=== PATIENT | female | born 2000 ===

== ENCOUNTER 2024-01-27 08:16 | Emergency (ER) | payer MEDICAID, SELFPAY ==
--- NOTE | ~2024-01-27 | CT_ITS ---
EXAMINATION: CT HIP WITH CONTRAST, RIGHT CLINICAL INFORMATION: Chronic open wound with drainage. COMPARISON: Radiographs of the hip from 01/27/2024 TECHNIQUE: CT imaging of the right hip region is performed with intravenous administration of 85 mL Omnipaque 350. This CT examination was performed using dose optimization techniques as appropriate, variously including the following: *Automated exposure control *Adjustment of mA and/or kV according to patient size (this includes techniques or standardized protocols for targeted exams where dose is matched to indication/reason for exam; i.e. 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 There is an old ossific fragment at the posteromedial aspect of the acetabulum. No acute fracture. A curvilinear focus of heterotopic ossification projects posterosuperior to the greater trochanter. Also, there are foci of heterotopic ossification and enthesophyte formation at the distal iliopsoas without iliopsoas bursitis. A small amount of gas and fluid are seen within a wound posteroinferior to the right hip. There is contrast enhancement along the periphery of the wound which tracks anteriorly and superiorly toward the region of the greater trochanter. This tract does not appear to penetrate through the hip joint capsule or into the femoral cortex. The bone marrow of the proximal femur has normal attenuation. There is no CT imaging evidence of osteomyelitis. There appears to be a trace amount of fluid within the right femoroacetabular joint and likely chronic capsular/synovial thickening of the deformed joint. There is no intra-articular gas. Fluid and fecal material present within the sigmoid colon and rectum. The rectum is distended up to 7.5 cm maximum transverse diameter. Constipation is suspected. There is no evidence of rectal or sigmoid mass. Urinary bladder is well distended and has normal wall thickness. No bladder stones or diverticula. No evidence of hydroureteronephrosis. No uterine or adnexal mass. No pelvic free fluid. No pathologic sized iliac or inguinal lymph nodes. Dextrocurvature of partially visualized lumbar spine. Streak artifact is produced by a pump in subcutaneous tissues of the lower right abdominal wall and an intact catheter extends toward the back and enters the posterior spinal canal at L3-L4 level. CT/CT hip RT w IV con IMPRESSION: * There is contrast enhancement along around a wound located posterior to the right hip. This wound tracks anteriorly and superiorly toward the region of the greater trochanter of the femur but there is no visible trochanteric bursitis or osteomyelitis. * Severe dysplastic deformity of the right hip with probable chronic small joint effusion and chronic capsular/synovial thickening at the deformed hip. * The sigmoid colon and rectum are distended with fluid and fecal material with rectum measuring up to 7.5 cm transverse dimension, which is suspicious for constipation. * Urinary bladder appears to be distended to near maximum capacity. Given the degree of bladder distention, query if there is a history of bladder dysfunction/neurogenic bladder.
--- NOTE | ~2024-01-27 | XR_ITS ---
EXAMINATION: XR HIP, RIGHT CLINICAL INFORMATION: Open wound at right hip COMPARISON: None available. TECHNIQUE: Two views of the right hip. FINDINGS: Bones are diffusely osteopenic. Severely deformed, dysplastic hips with presence of shallow acetabula and likely chronic superolateral dislocation of each femur. There is a mild amount of heterotopic ossification adjacent to the lesser trochanter of the right femur. There are no comparison imaging examinations of the right hip. However, there is no convincing acute erosive change. No aggressive periostitis. There appears to be a small focus of soft tissue gas projecting lateral to the intertrochanteric region on the AP view, but this is not seen on the frog-leg lateral view. The evaluation of the right pelvis and hip is partially limited on the AP view due to presence of an intrathecal pump with attached catheter in place. 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 * There appears to be a small focus of soft tissue gas in the right hip region. However, there is no convincing evidence of either septic arthritis or osteomyelitis. If clinically warranted, CT imaging of the pelvis/hips may be performed to further evaluate the bones and soft tissues.
--- NOTE | 2024-01-27 08:21 | ED.WOUNDLAC ---
HPI - Wound/Laceration General Chief Complaint: Wound/Laceration Stated Complaint: RIGHT HIP WOUND PER EMS Source: family, old records reviewed and analyst food and beverage Mode of arrival: EMS Limitations: other (family has to provide hx patient is nonverbal) History of Present Illness HPI narrative: 23 yo female with PMH of cerebral palsy s/p trach and vent with feeding tube who is nonverbal presents with c/o 6+ months of R hip wound that has been managed by [facility] but no surgeon or wound care center since she stayed at a respite facility s/p trach procedure. The family care for her and rotate her a lot they were able to heal ulcers on both lateral malleoli. She has never had wounds at home. She has not had fevers. They use pressure dressings and pack the wound daily. There are no signs of infection but RN today told family to get her checked out to make sure nothing else was going on. Onset (ago): month(s) (6+) Extremity Location: right: hip Place: other Patient tetanus UTD: Yes Context: other (after being at respite facility) Associated symptoms: none Treatments prior to arrival: bandage Related Data Previous Rx's Medication Instructions Recorded cephalexin 250 mg/5 mL oral 500 mg (10 mL) PO TID 7 days #210 01/27/24 suspension mL foam bandage 4 X 4 (Mepilex) #5 ea 01/27/24 Allergies Allergy/AdvReac Type Severity Reaction Status Date / Time sulfamethoxazole Allergy Unknown Unknown Verified 01/27/24 08:30 [From Bactrim] trimethoprim [From Bactrim] Allergy Unknown Unknown Verified 01/27/24 08:30 Review of Systems Review of Systems: ROS unable to be obtained due to nonverbal status REPLACED BY [facility] Past Medical History Medical History Cerebral palsy Social History Social History (Updated 01/27/24 @ 08:21 by Stephanie Malloy DO) Unable to assess alcohol history related to: Unable to respond Patient Tobacco Use Status: Never used Tobacco Use of substances other than those prescribed or required for medical reasons: Unable to respond Advance Directives: No Advance Directives Information Provided: No Physical Exam Vital Signs: Vital Signs: Last Vital Signs Temp 95.8 F L 01/27/24 14:00 Pulse 60 01/27/24 14:00 Resp 18 01/27/24 14:00 BP 112/82 01/27/24 13:12 Pulse Ox 97 01/27/24 14:00 O2 Del Method Room Air 01/27/24 14:00 O2 Flow Rate 2 01/27/24 13:12 BMI result Body Mass Index 22.9 Appearance: on vent, seems to have some response to tactile stimuli with shaking but otherwise at baseline per mom Eyes: Pupils equal, round and reactive to light. disconjugate gaze ENT: Pharynx dry MM Neck: trach in place c/d/i CVS: Normal heart rate and rhythm. Pulses normal. Respiratory: No respiratory distress. Breath sounds normal. Abdomen: Soft and nontender. no grimace to palpation Skin: Skin warm and dry. R hip there is a dime sized wound if not smaller that has brownish discharge but no surrounding edema, erythema, odor and the area inside appears clean and healthy no other ulcers or wounds noted, has closed healed scars on lateral malleolis Extremities: No lower extremity edema. No calf ttp Neuro: contracted limbs cannot participate in exam Course Course Course Narrative: per RN who cares for her no change in drainage but wound seems deeper Reevaluation(s) Reevaluation #1: discussed with Mayank given CT scan and mild increase in markers without change in drainage / abscess or external cellulitis refer to wound care center and start oral antibiotics Medications Administered Discontinued Medications Generic Name Dose Route Start Last Admin Trade Name Freq PRN Reason Stop Dose Admin Iohexol 100 ml 01/27/24 14:16 01/27/24 14:16 Iohexol 350 Mg/Ml 100 Ml Infus..Btl IV 01/27/24 14:17 85 ml ONCE ONE Administration Medical Decision Making Medical Decision Making [facility] Narrative: 23 yo female with PMH of cerebral palsy s/p trach and vent with feeding tube here with c/o chronic R hip wound for 6+ months. At this time wound itself is chronic appearing no fevers at home no surrounding erythema or signs of cellulitis. She is at baseline per mom. Her rectal temp is normal here no other changes per family. Will obtain basic labs and infl markers and xray of hip. Will attempt to get her into our wound care center for further management of the wound. Differential Diagnosis Differential Diagnoses: The differential diagnosis associated with the presentation includes pressure ulcer, chronic wound, osteo Admission/Observation Consideration of admission/observation: Escalation of care including admission/observation considered Lab Data MDM Lab Attestation statement: I reviewed the patient's lab results. 01/27/24 10:09 01/27/24 12:35 Labs: Lab Results 01/27/24 01/27/24 01/27/24 Range/Units 10:09 11:51 12:35 WBC 14.6 H (4.8-10.8) X10*3/uL RBC 4.54 (4.20-5.50) X10*6/uL Hgb 11.6 L (12.0-16.0) g/dl Hct 35.4 L (37.0-47.0) % MCV 78.0 L (80.0-98.0) fL MCH 25.6 L (27.0-33.0) pg MCHC 32.8 (31.0-35.0) g/dl RDW 15.1 (11.0-16.0) % Plt Count 360 (160-400) X10*3/uL MPV 12.1 (9.4-12.3) fL Immature Gran % (Auto) 0.5 H (0.0-0.4) % Neut % (Auto) 77.3 H (45-73) % Lymph % (Auto) 16.2 L (20-40) % [place] % (Auto) 4.3 (2-11) % Eos % (Auto) 1.4 (0-4) % Baso % (Auto) 0.3 (0-2) % Lymph # (Auto) 2.4 (1.2-4.9) X10*3/uL [place] # (Auto) 0.6 (0.1-1.2) X10*3/uL Eos # (Auto) 0.2 (0.0-0.4) X10*3/uL Baso # (Auto) 0.0 (0.0-0.2) X10*3/uL Abs Immat Gran (auto) 0.08 H (0.00-0.03) X10*3/uL Absolute Neuts (auto) 11.3 H (2.0-8.3) x10*3/uL Absolute Nucleated RBC 0.000 (0.0-0.012) X10*3/uL Nucleated RBC % (auto) 0.0 (0.0-0.2) /100WBC Smear Tech's Comments VERIFIED ESR 28 H (0-20) MM/HR Sodium Cancelled 139 Potassium Cancelled 4.9 Chloride Cancelled 106 Carbon Dioxide Cancelled 25 Anion Gap Cancelled 13 BUN Cancelled 10 Creatinine Cancelled 0.48 L Estim Creat Clear Calc Cancelled 70.0 Estimated GFR Cancelled > 60 Random Glucose Cancelled 114 Lactic Acid 1.8 (0.5-2.0) mmol/L Calcium Cancelled 8.9 Total Bilirubin 0.1 (0.0-1.0) mg/dL Direct Bilirubin < 0.2 (0.0-0.5) mg/dL AST 36 H (5-31) U/L ALT 23 (0-31) U/L Alkaline Phosphatase 138 H (39-117) U/L C-Reactive Protein 2.68 H (< or = 0.50) mg/dL Total Protein 8.0 (6.5-8.0) g/dL Albumin 3.4 L (3.5-5.0) g/dL Independent Interpretation I performed an independent interpretation of an: EKG and Plain X-Ray Interpretation: Rate: 55 Rhythm: sinus bradycardia [place]: normal Normal P waves. Normal [place]. Normal QRS complex. ST T wave : normal no HELIO qTC: 441 prior studies: no acute ischemia The study has been interpreted contemporaneously by me. . Radiology Impression Discussion of test interpretation with radiology: I have reviewed the radiologist's reading. Independent Historian Clinical information obtained from an independent historian. History obtained from or confirmed by: Parent and EMS Procedures EJ/Peripheral Line Arm R: Time Out Performed: Yes Skin Cleansed in Sterile Fashion: Yes Size (gauge): 20 IV Secured and Dressing Applied: Yes Patient Tolerated Procedure: well and no complications Discharge Plan Discharge Clinical Impression: Chronic wound Patient Disposition: Home, Self-Care Instructions: Chronic Wounds (ED) Additional Instructions: no signs of involvement to the bone. we will call you with appointment to wound care center. return for fevers, change in drainage, redness on the outside or any other concerns. DRESSING CHANGE WET TO DRY DAILY THEN APPLY MEPILEX DRESSING TO [facility] APPOINTMENT 02/04 215PM No hay signos de afectaci?n del angelo. Lo llamaremos para concertar kaden rachael con el centro de atenci?n de heridas. Regrese por fiebre, cambio en el drenaje, enrojecimiento en el exterior o cualquier otra inquietud. Prescriptions: New cephalexin 250 mg/5 mL suspension for reconstitution 500 mg PO TID 7 Days Qty: 210 0RF (DME) Mepilex 4 X 4 bandage See Rx Instructions .Route Qty: 5 3RF Rx Instructions: apply to hip every 72 hours Referrals: Renetta Mercado MD [Physician] - 02/05/24 2:15 pm (You will need to arrange transport from [facility] for this appointment. )
[2024-01-27 08:25] VITALS: BP 109/71; PULSE 61; RESP 20; TEMP 36.1; O2SAT 99; BMI 22.9
[2024-01-27 08:39] VITALS: BP 120/70; PULSE 53; O2SAT 96
--- NOTE | 2024-01-27 08:40 | PC.RT ---
pt. arrived to ED via EMS from home for c/o chronic hip wound. Patient is chronic trach/vent with history of CP. Patient arrived on home vent and set up in ED on home vent with 2L oxygen inline. 6.[address], trach site clean and intact. dressing changed. suctioned for large amount of thick, cream secretions. Patient comfortable, VS WNL at this time.
--- NOTE | 2024-01-27 09:12 | PC.NURSE ---
sterile gauze and sterile water lightly packed in wound and padded dressing placed as directed by
--- NOTE | 2024-01-27 09:21 | MHC.EDTECH ---
Pt difficult draw, RN aware of delay in labs.
--- NOTE | 2024-01-27 09:42 | PC.NURSE ---
spoke w phlebotomy- kathy- staff will come to attempt to draw blood as pt difficult stick- tried vein finder and heat as well as multiple staff, unable to visualize any veins, md cedeno ok w finger stick as a result as does not need iv per md cedeno
[2024-01-27 10:40] LABS: Basophils Percent Auto 0.3 % (0-2); Eosinophils Absolute Auto 0.2 X10*3/uL (0.0-0.4); Eosinophils Percent Auto 1.4 % (0-4); Hematocrit 35.4 % (37.0-47.0); Hemoglobin 11.6 g/dl (12.0-16.0); Imm Gran Abs Auto 0.08 X10*3/uL (0.00-0.03); Imm Gran Pct Auto 0.5 % (0.0-0.4); Lymphocytes Absolute Auto 2.4 X10*3/uL (1.2-4.9); Lymphocytes Percent Auto 16.2 % (20-40); MANUAL DIFF FLAG SCAN; Mean Corpuscular HGB Conc 32.8 g/dl (31.0-35.0); Mean Corpuscular Hemoglobin 25.6 pg (27.0-33.0); Monocytes Absolute Auto 0.6 X10*3/uL (0.1-1.2); Monocytes Percent Auto 4.3 % (2-11); Neutrophils Absolute Auto 11.3 x10*3/uL (2.0-8.3); Neutrophils Percent Auto 77.3 % (45-73); PLT CLUMP 1; Red Blood Count 4.54 X10*6/uL (4.20-5.50); Red Cell Distribution Width 15.1 % (11.0-16.0); SCAN SMEAR FLAG 1
[2024-01-27 10:53] LABS: Mean Platelet Volume 12.1 fL (9.4-12.3); Platelet Count 360 X10*3/uL (160-400); SLIDE REVIEW VERIFIED; White Blood Count 14.6 X10*3/uL (4.8-10.8)
--- NOTE | 2024-01-27 11:05 | ECG_ITS ---
Test Reason : hyperkalemia Blood Pressure : / mmHG Vent. Rate : 055 BPM Atrial Rate : 055 BPM P-R Int : 132 ms QRS Dur : 082 ms QT Int : 462 ms P-R-T Axes : 008 067 060 degrees QTc Int : 441 ms Sinus bradycardia Otherwise normal ECG No previous ECGs available Referred By: Stephanie Malloy Electronically Signed By:FRANDY DUNN MD
[2024-01-27 11:21] LABS: Erythrocyte Sedimentation Rate 28 MM/HR (0-20)
--- NOTE | 2024-01-27 11:30 | PC.NURSE ---
md cedeno obtained iv US line as RN attempted w US guidance for iv but unable to view any veins. prior tech tried for blood, hemolyzed and lab suspects that k is falsely elevated as a result- md cedeno made aware.
[2024-01-27 12:11] LABS: Lactic Acid 1.8 mmol/L (0.5-2.0)
[2024-01-27 13:06] LABS: Alanine Aminotransferase 23 U/L (0-31); Albumin Level 3.4 g/dL (3.5-5.0); Alkaline Phosphatase 138 U/L (39-117); Anion Gap 13 (12-20); Aspartate Amino Transferase 36 U/L (5-31); Bilirubin Direct < 0.2 mg/dL (0.0-0.5); Bilirubin Total 0.1 mg/dL (0.0-1.0); Blood Urea Nitrogen 10 mg/dL (9-16); C Reactive Protein 2.68 mg/dL (< or = 0.50); Calcium 8.9 mg/dL (8.4-10.2); Carbon Dioxide 25 mmol/L (22-29); Chloride 106 mmol/L (96-108); Estimated Glomerular Filt Rate > 60; Glucose Random 114 mg/dL (60-115); Potassium 4.9 mmol/L (3.3-5.1); Sodium 139 mmol/L (135-145)
[2024-01-27 13:12] VITALS: BP 112/82; PULSE 71; RESP 15; O2SAT 92
[2024-01-27 14:00] VITALS: PULSE 60; RESP 18; TEMP 35.4; O2SAT 97
[2024-01-27] MEDS: iohexoL 350 MG/ML 100 ML INFUS..BTL IV (14:16)
[2024-01-27 16:00] VITALS: BP 96/68; PULSE 65; RESP 14; TEMP 35.5; O2SAT 98
--- NOTE | 2024-01-27 16:19 | MHC.CM.ED ---
Received case management consult from Dr Malloy. Patient came to the ER due to chronic wounds. Work up essentially negative. Wound Care Appointment scheduled for 02/04 at 215pm. Patient's mother, Nikki and caregiver made aware. They have not been able to secure transportation for patient to attend appointments. Patient has a trach and a vent. Both are aware that [facility] can be arranged from patient's home. Gregory RUIZ booked for patient to return home at 530pm.
--- NOTE | 2024-01-27 16:30 | PC.NURSE ---
called ambulance. awaiting transport. given d/c instructions to family
--- NOTE | 2024-01-27 17:50 | PC.NURSE ---
ambulance at bedside placing pt on their vent. RT present. no distress. vss
[2024-01-27 17:51] VITALS: BP 104/73; PULSE 75; RESP 19; O2SAT 98
== END 2024-01-27 18:10 | disposition home or self-care (01) ==
PROVIDERS: Emergency Provider Emergency Medicine
DX: S71.001A Unspecified open wound, right hip, initial encounter (principal); G80.9 Cerebral palsy, unspecified; Z93.0 Tracheostomy status; Z93.1 Gastrostomy status; X58.XXXA Exposure to other specified factors, initial encounter; Y93.9 Activity, unspecified; Y92.9 Unspecified place or not applicable; Y99.9 Unspecified external cause status
CPT/HCPCS: 36410; 36415; 73502; 73701; 80048; 80076; 83605; 85025; 85652; 86140; 87040; 93005; 99284; Q9967

== ENCOUNTER → 2024-01-27 11:05 | Outpatient (BNV) | payer MEDICAID, SELFPAY | PROVIDERS: Emergency Provider Emergency Medicine; Visit Provider Internal Medicine Cardiovascular Disease | DX: R00.1 Bradycardia, unspecified (principal) | CPT/HCPCS: 93010 ==

== ENCOUNTER 2024-02-05 14:09 | Outpatient (RCR) | payer MEDICAID, SELFPAY | END 2024-11-10 12:35 | disposition home or self-care (01) | LOC: HO.WCC 14:09 | PROVIDERS: Visit Provider Surgery | DX: L89.213 Pressure ulcer of right hip, stage 3 (principal); G80.8 Other cerebral palsy; M16.31 Unilateral osteoarthritis resulting from hip dysplasia, right hip; Z79.891 Long term (current) use of opiate analgesic; Z79.899 Other long term (current) drug therapy | CPT/HCPCS: 11042; 99212 ==